=== PATIENT | male | born 1975 | race Caucasian/White ===

== ENCOUNTER 2024-11-26 08:18 | Outpatient (AMB) | payer MEDICAID, SELFPAY ==
--- OUTSIDE RECORDS SUMMARY | 2024-11-26 08:23 | XMS_ITS | Clinical Summary ---
Author Organization [address] Address [address] [place] [phone] Phone Care Team Providers Care Mannequin Decorator Name Role Phone Sergey aKur DO Primary Care Provider [phone] Allergies No known active allergies Medications traMADoL (Ultram) 50 mg tablet Take by mouth. Sig - Route: one tablet up to twice daily - Oral Active valACYclovir (VALTREX) 500 mg tablet Sig - Route: One pill by mouth daily - Oral Active ibuprofen (ADVIL,MOTRIN) 200 mg tablet Si-8 daily Active Active Problems Problem Noted Date Diagnosed Date SOB (shortness of breath) 11/20/2024 Diastolic dysfunction 11/20/2024 Herpes simplex 09/26/2024 Chronic back pain 09/26/2024 Known medical problems 09/26/2024 Overview (09/26/2024): Other symptoms referable to back Immunizations Name Administration Dates Next Due Tdap Tetanus diptheria acell ular pertussis (Boostrix; Adacel) 7yo and older 05/25/2008 Medical History Medical History Date Comments Lower leg edema Social History Tobacco Use Types Packs/Day Years Used Date Smoking Tobacco: Never Assessed Sex and Gender Information Value Date Recorded Sex Assigned at Not on file Legal Sex Male 8:02 AM EST Gender Identity Not on file Sexual Orientation Not on file Obstetrics History Last Filed Vital Signs Vital Sign Reading Time Taken Comments Blood Pressure 132/86 01/29/2024 7:01 AM EDT Pulse - - Temperature - - Respiratory Rate - - Oxygen Saturation - - Inhaled Oxygen Concentration - - Weight 133 kg (293 lb) 01/29/2024 7:01 AM EDT Height 185.4 cm (6' 1 ) 01/29/2024 7:01 AM EDT Body Mass Index 38.66 01/29/2024 7:01 AM EDT Plan of Treatment Upcoming Encounters Date Type Department Care Team (Hetal st Contact Info) Description 11/27/2024 8:50 AM EST Office Visit [facility] [address] [place] [address] Chaparro Baldwin MD [address] [place] [address] [address] [place] [address] Health Maintenance Due Date Last Done Comments Hepatitis B Vaccines (1 of 3 - 19+ 3-dose series) 02/03/1992 DTaP,Tdap,and Td Vaccines (2 - Td or Tdap) 05/25/2018 05/25/2008 Pneumococcal Vaccine: 50+ Years (1 of 1 - PCV) 2023 Zoster Vaccines (1 of 2) 2023 Colorectal Cancer Screening: Colonoscopy 05/06/2024 Depression Screening 05/06/2024 HIV Screening 05/06/2024 Hepatitis C Screening 05/06/2024 Social Influencers of Health Screening 05/06/2024 COVID-19 Vaccine ( - 2023-2 5 season) 2024 Influenza Vaccine (#1) 2024 Hypertension/CHF/CAD Annual BMP Blood Test 11/11/2025 11/11/2024, 02/05/2009 Cholesterol Screening (Lipid Panel) 11/11/2029 11/11/2024, 02/05/2009 HIB Vaccines Aged Out No longer eligi ble based on patient's age to complete this topic HPV Vaccines Aged Out No longer eligi ble based on patient's age to complete this topic Hepatitis A Vaccines Aged Out No long er eligible based on patient's age to complete this topic IPV Vaccines Aged Out No longer eligi ble based on patient's age to complete this topic MMR Vaccines Aged Out No longer eligi ble based on patient's age to complete this topic Meningococcal ACWY Vaccine Aged Out N o longer eligible based on patient's age to complete this topic Meningococcal B Vacine Aged Out No lo nger eligible based on patient's age to complete this topic Pneumococcal Vaccine: Pediatrics (0 to 5 Years) and At-Risk Patients (6 to 64 Years) Aged Out No longer eligible b ased on patient's age to complete this topic RSV Immunization Patients Under 20 months Aged Out No longer eligible b ased on patient's age to complete this topic Varicella Vaccines Aged Out No longer eligible based on patient's age to complete this topic Procedures Procedure Name Priority Date/Time Associated Diagnosis Comments HEMOGLOBIN A1C Routine 11/11/2024 9:24 AM EST HTN (hypertension) IGT (impaired glucose tolerance) BMI 38.0-38.9,adult HLD (hyperlipidemia) BASIC METABOLIC PANEL Routine 11/11/2024 9:24 AM EST HTN (hypertension) IGT (impaired glucose tolerance) BMI 38.0-38.9,adult HLD (hyperlipidemia) ASPARTATE AMINOTRANSFERASE Routine 11/11/2024 9:24 AM EST HTN (hypertension) IGT (impaired glucose tolerance) BMI 38.0-38.9,adult HLD (hyperlipidemia) ALANINE AMINOTRANSFERASE Routine 025 9:24 AM EST HTN (hypertension) IGT (impaired glucose tolerance) BMI 38.0-38.9,adult HLD (hyperlipidemia) LIPID PANEL WITH REFLEX TO DIRECT LDL Routine 11/11/2024 9:24 AM EST HTN (hypertension) IGT (impaired glucose tolerance) BMI 38.0-38.9,adult HLD (hyperlipidemia) from Last 3 Months Results * Lipid panel with reflex to direct LDL (11/11/2024 9:24 AM EST) Cholesterol 148 0 - 200 mg/dL LAB CHEMISTRY METHOD 11/11/2024 11:32 AM EST [facility] Triglycerides 61 0 - 150 mg/dL LAB CHEMISTRY METHOD 11/11/2024 11:32 AM EST [facility] HDL 48 >=40 mg/dL LAB CHEMISTRY METHOD 11/11/2024 11:32 AM EST [facility] LDL Calculated 88 0 - 100 mg/dL LAB CHEMISTRY METHOD 11/11/2024 11:32 AM [facility] VLDL Cholesterol Ryder 12.2 mg/dL LAB CHEMISTRY METHOD 11/11/2024 11:32 AM [facility] Non HDL Chol. (LDL+VLDL) 100 <145 mg/dL LAB CHEMISTRY METHOD 11/11/2024 11:32 AM [facility] Chol/HDL Ratio 3.1 0.0 - 4.4 LAB CHEMISTRY METHOD 11/11/2024 11:32 AM [facility] Blood Venous blood specimen / Unknown Venipuncture / Unknown 11/11/2024 9:24 AM EST 11/11/2024 9:24 AM EST [facility] LAB BLOOD ORDERABLES Final Resul t Performing Organization Address [facility]/ZIP Co de Phone Number [facility] [address] [place] [address], [place] [phone] * Alanine aminotransferase (11/11/2024 9:24 AM EST) ALT (SGPT) 20 10 - 60 unit/L LAB CHEMISTRY METHOD 11/11/2024 11:30 AM [facility] Blood Venous blood specimen / Unknown Venipuncture / Unknown 11/11/2024 9:24 AM EST 11/11/2024 9:24 AM EST [facility] LAB BLOOD ORDERABLES Final Resul t Performing Organization Address City/[facility]/ZIP Co de Phone Number [facility] [address] [place] [address], [place] [phone] * Aspartate aminotransferase (11/11/2024 9:24 AM EST) AST (SGOT) 14 10 - 42 unit/L LAB CHEMISTRY METHOD 11/11/2024 11:30 AM [facility] Blood Venous blood specimen / Unknown Venipuncture / Unknown 11/11/2024 9:24 AM EST 11/11/2024 9:24 AM EST [facility] Saleemcarlos LAB BLOOD ORDERABLES Final Resul t Performing Organization Address [facility]/ZIP Co de Phone Number [facility] [address] [place] [address], [place] [phone] * Hemoglobin A1c (11/11/2024 9:24 AM EST) Pathologist [facility] Hemoglobin A1C 6.0 <6.5 % LAB CHEMISTRY METHOD 11/11/2024 2:07 PM EST [facility] Mean Bld Glu Estim. 126 mg/dL LAB CHEMISTRY METHOD 11/11/2024 2:07 PM [facility] Blood Venous blood specimen / Unknown Venipuncture / Unknown 11/11/2024 9:24 AM EST 11/11/2024 9:24 AM EST [facility] Mike LAB BLOOD ORDERABLES Final Resul t Performing Organization Address City/[facility]/ZIP Co de Phone Number [facility] [address] [place] [address], [place] [phone] * Basic metabolic panel (11/11/2024 9:24 AM EST) Pathologist [facility] Sodium 138 133 - 145 mmol/L LAB CHEMISTRY METHOD 11/11/2024 11:30 AM EST [facility] Potassium 4.3 3.5 - 5.5 mmol/L LAB CHEMISTRY METHOD 11/11/2024 11:30 AM EST [facility] Chloride 105 96 - 110 mmol/L LAB CHEMISTRY METHOD 11/11/2024 11:30 AM EST [facility] CO2 27 21 - 32 mmol/L LAB CHEMISTRY METHOD 11/11/2024 11:30 AM EST [facility] Anion Gap 6 3 - 11 LAB CHEMISTRY METHOD 11/11/2024 11:30 AM EST [facility] Glucose 88 70 - 100 mg/dL LAB CHEMISTRY METHOD 11/11/2024 11:30 AM [facility] BUN 19 5 - 25 mg/dL LAB CHEMISTRY METHOD 11/11/2024 11:30 AM [facility] Creatinine 0.87 0.70 - 1.30 mg/dL LAB CHEMISTRY METHOD 11/11/2024 11:30 AM [facility] eGFR 104 >=60 mL/min/1. 73m2 LAB CHEMISTRY METHOD 11/11/2024 11:30 AM [facility] Comment:Calculation based on the??Chronic Kidney Disease Epidemiology Collaboration (CKD-EPI) equation refit??without adjustment for race. BUN/Creatinine Ratio 21.8 LAB CHEMISTRY METHOD 11/11/2024 11:30 AM [facility] Calcium 9.3 8.5 - 10.5 mg/dL LAB CHEMISTRY METHOD 11/11/2024 11:30 AM [facility] Blood Venous blood specimen / Unknown Venipuncture / Unknown 11/11/2024 9:24 AM EST 11/11/2024 9:24 AM EST [facility] Mckeon LAB BLOOD ORDERABLES Final Resul t [facility] [address] [place] [address], from Last 3 Months Insurance MEDICAID - [place] Care Teams Mannequin Decorator Relationship Specialty Start Date End Date Sergey Kaur DO [address] [place] [phone] PCP - General Internal Medicine 09/30/24
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
[2024-11-26 08:26] VITALS: BP 140/106; PULSE 89; O2SAT 95; BMI 37.2
== END 2024-11-26 09:05 | disposition home or self-care (01) ==
PROVIDERS: PCP Internal Medicine; Visit Provider Internal Medicine Rheumatology
DX: M47.812 Spondylosis without myelopathy or radiculopathy, cervical region (principal); M17.0 Bilateral primary osteoarthritis of knee; E66.9 Obesity, unspecified; Z79.1 Long term (current) use of non-steroidal anti-inflammatories (NSAID)
CPT/HCPCS: 99214

== ENCOUNTER → 2024-11-26 08:18 | Outpatient (BNVA) | payer MEDICAID, SELFPAY | PROVIDERS: PCP Internal Medicine; Visit Provider Internal Medicine Rheumatology | DX: M47.812 Spondylosis without myelopathy or radiculopathy, cervical region (principal); M17.0 Bilateral primary osteoarthritis of knee; E66.9 Obesity, unspecified; Z79.01 Long term (current) use of anticoagulants; Z68.37 Body mass index [BMI] 37.0-37.9, adult | CPT/HCPCS: 99212 ==

== ENCOUNTER 2025-01-12 08:29 | Outpatient (AMB) | payer MEDICAID, SELFPAY ==
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
[2025-01-12 08:36] VITALS: BP 173/96; PULSE 85; RESP 16; O2SAT 97; BMI 35.0
--- OUTSIDE RECORDS SUMMARY | 2025-01-12 09:01 | XMS_ITS | Clinical Summary ---
Author Organization [facility] Address [address] [place] [address] Phone Care Team Providers Care Treatment Specialist Name Role Phone Sergey Kaur DO Primary Care Provider [phone] Allergies No known active allergies Medications traMADoL [...] Overview (09/26/2024): Other symptoms referable to back Encounters Date Type Department Care Team Description 12/05/2024 Telephone [facility] [address] [place] [address] Chaparro Baldwin MD No Call No Show from Last 3 Months Immunizations Name Administration Dates Next Due Tdap [...] Upcoming Encounters Date Type Department Care Team (Late st Contact Info) Description 03/06/2025 8:20 AM EDT Office Visit [facility] Cardiology [address] [place] [id number] Chaparro Baldwin MD [address] [place] [address] [address] [place], [place] [id number] Health Maintenance Due Date Last Done Comments [...] Influencers of Health Screening 05/06/2024 COVID-19 Vaccine (1 - 2023-2 5 season) 2024 Influenza Vaccine [...] LAB CHEMISTRY METHOD 11/11/2024 11:[address] [facility] Triglycerides 61 0 - 150 mg/dL LAB CHEMISTRY METHOD 11/11/2024 11:32 AM [facility] HDL 48 >=40 mg/dL LAB CHEMISTRY METHOD 11/11/2024 11:32 AM [facility] LDL Calculated 88 0 - 100 mg/dL LAB CHEMISTRY METHOD 11/11/2024 11:32 AM [facility] VLDL Cholesterol Ryder 12.2 mg/dL LAB CHEMISTRY METHOD 11/11/2024 11:32 AM [facility] Non HDL Chol. (LDL+VLDL) 100 <145 mg/dL LAB CHEMISTRY METHOD 11/11/2024 11:32 AM [facility] Chol/HDL Ratio 3.1 0.0 - 4.4 LAB CHEMISTRY METHOD 11/11/2024 11:32 AM [facility] Blood Venous blood specimen / Unknown Venipuncture / Unknown 11/11/2024 9:24 AM EST 11/11/2024 9:24 AM EST Christiano Mckeon LAB BLOOD ORDERABLES Final Resul t [facility] [address] [place] [address], [place] [phone] * Alanine aminotransferase (11/11/2024 9:24 AM EST) ALT (SGPT) 20 10 - 60 unit/L LAB CHEMISTRY METHOD 11/11/2024 11:30 AM [facility] Blood Venous blood specimen / Unknown Venipuncture / Unknown 11/11/2024 9:24 AM EST 11/11/2024 9:24 AM EST Christiano Mckeon LAB BLOOD ORDERABLES Final Resul t [facility] [address] [place] [address], [place] [phone] * Aspartate aminotransferase (11/11/2024 9:24 AM EST) Pathologist [facility] AST (SGOT) 14 10 - 42 unit/L LAB CHEMISTRY METHOD 11/11/2024 11:[address] [facility] Blood Venous blood specimen / Unknown Venipuncture / Unknown 11/11/2024 9:24 AM EST 11/11/2024 9:24 AM EST Christiano Jackson LAB BLOOD ORDERABLES Final Resul t Performing Organization Address [facility]/ZIP Co de Phone Number [facility] [address] [place] [address], [place] [phone] * Hemoglobin A1c (11/11/2024 9:24 AM EST) [facility] Hemoglobin A1C 6.0 <6.5 % LAB CHEMISTRY METHOD 11/11/2024 2:[address] [facility] Mean Bld Glu Estim. 126 mg/dL LAB CHEMISTRY METHOD 11/11/2024 2:07 PM [facility] Blood Venous blood specimen / Unknown Venipuncture / Unknown 11/11/2024 9:24 AM EST 11/11/2024 9:24 AM EST Christiano Mckeon LAB BLOOD ORDERABLES Final Resul t Performing Organization Address [facility]/ZIP Co de Phone Number [facility] [address] [place] [address], [place] [phone] * Basic metabolic panel (11/11/2024 9:24 AM EST) [facility] Sodium 138 133 - 145 mmol/L LAB CHEMISTRY METHOD 11/11/2024 11:[address] [facility] Potassium 4.3 3.5 - 5.5 mmol/L LAB CHEMISTRY METHOD 11/11/2024 11:[address] [facility] Chloride 105 96 - 110 mmol/L LAB CHEMISTRY METHOD 11/11/2024 11:[address] [facility] CO2 27 21 - 32 mmol/L LAB CHEMISTRY METHOD 11/11/2024 11:30 AM [facility] Anion Gap 6 3 - 11 LAB CHEMISTRY METHOD 11/11/2024 11:30 AM [facility] Glucose 88 70 - 100 mg/dL LAB CHEMISTRY METHOD 11/11/2024 11:30 AM [facility] BUN 19 5 - 25 mg/dL LAB CHEMISTRY METHOD 11/11/2024 11:30 AM [facility] Creatinine 0.87 0.70 - 1.30 mg/dL LAB CHEMISTRY METHOD 11/11/2024 11:30 AM [facility] eGFR 104 >=60 mL/min/1. 73m2 LAB CHEMISTRY METHOD 11/11/2024 11:30 AM [facility] Comment:Calculation based on the??Chronic Kidney Disease Epidemiology Collaboration (CKD-EPI) equation refit??without adjustment for race. BUN/Creatinine Ratio 21.8 LAB CHEMISTRY METHOD 11/11/2024 11:30 AM [facility] Calcium 9.3 8.5 - 10.5 mg/dL LAB CHEMISTRY METHOD 11/11/2024 11:30 AM [facility] Blood Venous blood specimen / Unknown Venipuncture / Unknown 11/11/2024 9:24 AM EST 11/11/2024 9:24 AM EST us Christiano Mckeon LAB BLOOD ORDERABLES Final Resul t [facility] [address] [place] [address], from Last 3 Months Insurance MEDICAID - [place] Care Teams Treatment Specialist Relationship Specialty Start Date End Date Sergey Kaur DO [address] [place] [phone] PCP - General Internal Medicine 09/30/24
== END 2025-01-12 09:01 | disposition home or self-care (01) ==
PROVIDERS: PCP Internal Medicine; Referring Provider Internal Medicine Rheumatology; Visit Provider Anesthesiology
DX: M47.812 Spondylosis without myelopathy or radiculopathy, cervical region (principal); M54.2 Cervicalgia; M79.2 Neuralgia and neuritis, unspecified; G89.4 Chronic pain syndrome; M54.9 Dorsalgia, unspecified; M19.90 Unspecified osteoarthritis, unspecified site
CPT/HCPCS: 99204

== ENCOUNTER → 2025-01-12 08:29 | Outpatient (BNVA) | payer MEDICAID, SELFPAY | PROVIDERS: PCP Internal Medicine; Referring Provider Internal Medicine Rheumatology; Visit Provider Anesthesiology | DX: M47.812 Spondylosis without myelopathy or radiculopathy, cervical region (principal); M54.2 Cervicalgia; M79.2 Neuralgia and neuritis, unspecified; G89.4 Chronic pain syndrome; M19.90 Unspecified osteoarthritis, unspecified site | CPT/HCPCS: 99202 ==

== ENCOUNTER 2025-03-03 06:25 | Outpatient (REF) | payer MEDICAID, SELFPAY ==
--- NOTE | ~2025-03-03 | FL_ITS ---
EXAMINATION: FL GUIDANCE ONLY HISTORY: M47.812 - Spondylosis without myelopathy or radiculopathy, cervical region COMPARISON: None available. TECHNIQUE: Fluoroscopy time: 0.3 minutes. Cumulative Dose: 2.55 mGy. DAP: 0.0357 mGym2 Images: 1. FINDINGS: A single fluoroscopic spot film of the cervical spine in the AP projection demonstrates a lead in the right neck. FL/FL guidance in treatment room IMPRESSION: Fluoroscopy during procedure. Please see procedure report for additional information. Electronically signed by: Long Sanchez MD 03/03/2025 11:59 AM EDT
--- OUTSIDE RECORDS SUMMARY | 2025-03-03 06:28 | XMS_ITS | Clinical Summary ---
Author Organization [facility] Address [address] [place] [address] Phone Care Team Providers Care Vp Software Support Name Role Phone Sergey Kaur DO Primary Care Provider [phone] Allergies No known active allergies Medications traMADoL [...] Type Department Care Team Description 12/05/2024 Telephone [facility] [address] [place] [address] Chaparro Baldwin MD No Call [...] Description 03/06/2025 8:20 AM EDT Office Visit [facility] Cardiology [address] [place] [phone] Chaparro Baldwin MD [address] [place] [address] [address] [place] [address] Health Maintenance Due Date Last Done Comments [...] - 2023-2 5 season) 2024 Influenza Vaccine (Season Ended) 2025 Hypertension/CHF/CAD Annual BMP Blood Test 11/11/2025 11/11/2024, [...] age to complete this topic Meningococcal B Vaccine Aged Out No l onger eligible based on patient's age to complete [...] Procedure Name Priority Date/Time Associated Diagnosis Comments BASIC METABOLIC PANEL Routine 11/11/2024 9:24 AM EST HTN (hypertension) IGT (impaired glucose tolerance) BMI 38.0-38.9,adult HLD (hyperlipidemia) LIPID PANEL WITH REFLEX TO DIRECT LDL Routine 11/11/2024 9:24 AM EST HTN (hypertension) IGT (impaired glucose tolerance) BMI 38.0-38.9,adult HLD (hyperlipidemia) from Last 3 Months or Most Recently Relevant to Health Maintenance Results * Lipid panel with reflex to direct LDL (11/11/2024 9:24 AM EST) Cholesterol 148 0 - 200 mg/dL LAB CHEMISTRY METHOD 11/11/2024 11:32 AM [facility] Triglycerides 61 0 - 150 mg/dL LAB CHEMISTRY METHOD 11/11/2024 11:32 AM [facility] HDL 48 >=40 mg/dL LAB CHEMISTRY METHOD 11/11/2024 11:32 AM [facility] LDL Calculated 88 0 - 100 mg/dL LAB CHEMISTRY METHOD 11/11/2024 11:32 AM [facility] VLDL Cholesterol Ryder 12.2 mg/dL LAB CHEMISTRY METHOD 11/11/2024 11:32 AM [facility] Non HDL Chol. (LDL+VLDL) 100 <145 mg/dL LAB CHEMISTRY METHOD 11/11/2024 11:32 AM [facility] Chol/HDL Ratio 3.1 0.0 - 4.4 LAB CHEMISTRY METHOD 11/11/2024 11:32 AM [facility] Blood Venous blood specimen / Unknown Venipuncture / Unknown 11/11/2024 9:24 AM EST 11/11/2024 9:24 AM EST us Christiano Mckeon LAB BLOOD ORDERABLES Final Resul t [facility] [address] [place] [address], [place] [phone] * Basic metabolic panel (11/11/2024 9:24 AM EST) Sodium 138 133 - 145 mmol/L LAB CHEMISTRY METHOD 11/11/2024 11:30 AM [facility] Potassium 4.3 3.5 - 5.5 mmol/L LAB CHEMISTRY METHOD 11/11/2024 11:30 AM [facility] Chloride 105 96 - 110 mmol/L LAB CHEMISTRY METHOD 11/11/2024 11:30 AM [facility] CO2 27 21 - 32 mmol/L LAB CHEMISTRY METHOD 11/11/2024 11:30 AM [facility] Anion Gap 6 3 - 11 LAB CHEMISTRY METHOD 11/11/2024 11:30 AM [facility] Glucose 88 70 - 100 mg/dL LAB CHEMISTRY METHOD 11/11/2024 11:30 AM [facility] BUN 19 5 - 25 mg/dL LAB CHEMISTRY METHOD 11/11/2024 11:30 AM [facility] Creatinine 0.87 0.70 - 1.30 mg/dL LAB CHEMISTRY METHOD 11/11/2024 11:30 AM [facility] eGFR 104 >=60 mL/min/1. 73m2 LAB CHEMISTRY METHOD 11/11/2024 11:30 AM EST [facility] Comment:Calculation based on the??Chronic Kidney Disease Epidemiology Collaboration (CKD-EPI) equation refit??without adjustment for race. BUN/Creatinine Ratio 21.8 LAB CHEMISTRY METHOD 11/11/2024 11:30 AM EST [facility] Calcium 9.3 8.5 - 10.5 mg/dL LAB CHEMISTRY METHOD 11/11/2024 11:30 AM EST [facility] Blood Venous blood specimen / Unknown Venipuncture / Unknown 11/11/2024 9:24 AM EST 11/11/2024 9:24 AM EST us Christiano Mckeon LAB BLOOD ORDERABLES Final Resul t [facility] [address] [place] [address], from Last 3 Months or Most Recently Relevant to Health Maintenance Insurance MEDICAID - [place] Care Teams Vp Software Support Relationship Specialty Start Date End Date Sergey Kaur DO [address] [place] [phone] PCP - General Internal Medicine 09/30/24
== END 2025-03-03 06:26 | disposition home or self-care (01) ==
LOC: CF 06:25
PROVIDERS: Visit Provider Anesthesiology
DX: M47.812 Spondylosis without myelopathy or radiculopathy, cervical region (principal)
CPT/HCPCS: 64555; C1778; J2003

== ENCOUNTER 2025-03-03 08:08 | Outpatient (AMB) | payer MEDICAID, SELFPAY ==
[2025-03-03 08:14] VITALS: BP 143/79; PULSE 91; RESP 18; O2SAT 96
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
[2025-03-03 08:54] VITALS: BP 139/93; PULSE 84; RESP 20; O2SAT 98
== END 2025-03-03 09:10 | disposition home or self-care (01) ==
LOC: HO.PMCPRC 08:08
PROVIDERS: PCP Internal Medicine; Visit Provider Anesthesiology
DX: M54.2 Cervicalgia (principal); M47.812 Spondylosis without myelopathy or radiculopathy, cervical region
CPT/HCPCS: 64555

== ENCOUNTER 2025-03-11 10:51 | Outpatient (AMB) | payer MEDICAID, SELFPAY ==
[2025-03-11 11:02] VITALS: BP 152/95; PULSE 90; RESP 20; O2SAT 97
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
--- OUTSIDE RECORDS SUMMARY | 2025-03-11 11:44 | XMS_ITS | Clinical Summary ---
Author Organization [facility] Address [address] [place] [address] Phone Care Team Providers Care Tax Analyst Name Role Phone ValerianotachodarylSergey murphy Primary Care Provider [phone] Allergies No known active allergies Medications traMADoL [...] 01/29/2024 7:01 AM EDT Plan of Treatment Health Maintenance Due Date Last Done Comments [...] LAB CHEMISTRY METHOD 11/11/2024 11:32 AM EST [facility] Triglycerides 61 0 - 150 mg/dL LAB CHEMISTRY METHOD 11/11/2024 11:32 AM [facility] HDL 48 >=40 mg/dL LAB CHEMISTRY METHOD 11/11/2024 11:32 AM [facility] LDL Calculated 88 0 - 100 mg/dL LAB CHEMISTRY METHOD 11/11/2024 11:32 AM EST [facility] VLDL Cholesterol Ryder 12.2 mg/dL [...] Mckeon LAB BLOOD ORDERABLES Final Resul t [facility] [address] [place] [address], [place] [phone] * Basic metabolic panel (11/11/2024 9:24 AM EST) Sodium 138 133 - 145 mmol/L LAB CHEMISTRY METHOD 11/11/2024 11:30 AM [facility] Potassium 4.3 3.5 - 5.5 mmol/L LAB CHEMISTRY METHOD 11/11/2024 11:30 AM [facility] Chloride 105 96 - 110 mmol/L LAB CHEMISTRY METHOD 11/11/2024 11:30 AM [facility] CO2 27 21 - 32 mmol/L LAB CHEMISTRY METHOD 11/11/2024 11:30 AM [facility] Anion Gap 6 3 - 11 LAB CHEMISTRY METHOD 11/11/2024 11:30 AM [facility] Glucose 88 70 - 100 [...] Mckeon LAB BLOOD ORDERABLES Final Resul t [facility] [address] [place] [address], from Last 3 Months or Most Recently Relevant to Health Maintenance Insurance MEDICAID - [place] Care Teams Tax Analyst Relationship Specialty Start Date End Date Sergey Kaur DO [address] [place] [phone] PCP - General Internal Medicine 09/30/24
== END 2025-03-11 11:28 | disposition home or self-care (01) ==
LOC: HO.PMC 10:51
PROVIDERS: PCP Internal Medicine; Visit Provider Anesthesiology
DX: M47.812 Spondylosis without myelopathy or radiculopathy, cervical region (principal); M54.2 Cervicalgia; M79.2 Neuralgia and neuritis, unspecified; G89.4 Chronic pain syndrome; M54.9 Dorsalgia, unspecified; M19.90 Unspecified osteoarthritis, unspecified site
CPT/HCPCS: 99024

== ENCOUNTER → 2025-03-11 10:51 | Outpatient (BNVA) | payer MEDICAID, SELFPAY | PROVIDERS: PCP Internal Medicine; Visit Provider Anesthesiology | DX: M47.812 Spondylosis without myelopathy or radiculopathy, cervical region (principal); M54.2 Cervicalgia; M79.2 Neuralgia and neuritis, unspecified; M54.9 Dorsalgia, unspecified; M19.90 Unspecified osteoarthritis, unspecified site; G89.4 Chronic pain syndrome | CPT/HCPCS: 99212 ==

== ENCOUNTER 2025-03-17 06:02 | Outpatient (REF) | payer MEDICAID, SELFPAY ==
--- NOTE | ~2025-03-17 | FL_ITS ---
EXAMINATION: FLUOROSCOPY GUIDANCE FOR NEEDLE PLACEMENT CLINICAL INFORMATION: M47.812 - Spondylosis without myelopathy or radiculopathy, cervical region COMPARISON: None available. TECHNIQUE: Fluoroscopy guidance was provided to referring physician during the procedure. No radiologist present. FINDINGS/ FL/FL guidance in treatment room IMPRESSION: A single digital images obtained revealing needle positioned posterior to C4-5 disc level . No other bony abnormality seen. FLUOROSCOPY TIME: 0.1 minutes DOSE AREA PRODUCT: 1.40 uGy-m2 (microgray-meter squared) Electronically signed by: Christian Mosley MD 03/17/2025 08:42 AM EDT
--- OUTSIDE RECORDS SUMMARY | 2025-03-17 06:05 | XMS_ITS | Clinical Summary ---
Author Organization [facility] [address] [employer] [facility] Address [address] [facility] [place] [address] Phone Care Team Providers Care Agronomy Professor Name Role Phone ValerianotachodarylSergey murphy Primary Care Provider [phone] Allergies No known active allergies Medications traMADoL [...] LAB CHEMISTRY METHOD 11/11/2024 11:32 AM EST [facility] Triglycerides 61 0 - 150 mg/dL LAB CHEMISTRY METHOD 11/11/2024 11:32 AM [facility] HDL 48 >=40 mg/dL LAB CHEMISTRY METHOD 11/11/2024 11:32 AM [facility] LDL Calculated 88 0 - 100 mg/dL LAB CHEMISTRY METHOD 11/11/2024 11:32 AM EST [facility] VLDL Cholesterol Ryder 12.2 mg/dL LAB CHEMISTRY METHOD 11/11/2024 11:32 AM [facility] Non HDL Chol. (LDL+VLDL) 100 <145 mg/dL LAB CHEMISTRY METHOD 11/11/2024 11:32 AM [facility] Chol/HDL Ratio 3.1 0.0 - 4.4 LAB CHEMISTRY METHOD 11/11/2024 11:32 AM [facility] Blood Venous blood specimen / Unknown Venipuncture / Unknown 11/11/2024 9:24 AM EST 11/11/2024 9:24 AM EST us Christiano Mckeon LAB BLOOD ORDERABLES Final Resul t [facility] [address] [place] [address], [place] [phone] * Basic metabolic panel (11/11/2024 9:24 AM EST) Sodium 138 133 - 145 mmol/L LAB CHEMISTRY METHOD 11/11/2024 11:30 AM [facility] Potassium 4.3 3.5 - 5.5 mmol/L LAB CHEMISTRY METHOD 11/11/2024 11:30 AM [facility] Chloride 105 96 - 110 mmol/L LAB CHEMISTRY METHOD 11/11/2024 11:30 AM [facility] CO2 27 21 - 32 mmol/L LAB CHEMISTRY METHOD 11/11/2024 11:30 AM [facility] Anion Gap 6 3 - 11 LAB CHEMISTRY METHOD 11/11/2024 11:30 AM [facility] Glucose 88 70 - 100 mg/dL LAB CHEMISTRY METHOD 11/11/2024 11:30 AM [facility] BUN 19 5 - 25 mg/dL LAB CHEMISTRY METHOD 11/11/2024 11:30 AM [facility] Creatinine 0.87 0.70 - 1.30 mg/dL LAB CHEMISTRY METHOD 11/11/2024 11:30 AM [facility] eGFR 104 >=60 mL/min/1. 73m2 LAB CHEMISTRY METHOD 11/11/2024 11:30 AM [facility] Comment:Calculation based on the??Chronic Kidney Disease Epidemiology Collaboration (CKD-EPI) equation refit??without adjustment for race. BUN/Creatinine Ratio 21.8 LAB CHEMISTRY METHOD 11/11/2024 11:30 AM [facility] Calcium 9.3 8.5 - 10.5 mg/dL LAB CHEMISTRY METHOD 11/11/2024 11:30 AM [facility] Blood Venous blood specimen / Unknown Venipuncture / Unknown 11/11/2024 9:24 AM EST 11/11/2024 9:24 AM EST Christiano Mckeon LAB BLOOD ORDERABLES Final Resul t [facility] [address] [place] [address], from Last 3 Months or Most Recently Relevant to Health Maintenance Insurance MEDICAID - [place] Care Teams Agronomy Professor Relationship Specialty Start Date End Date Sergey Kaur DO [address] [place] [phone] PCP - General Internal Medicine 09/30/24
== END 2025-03-17 06:03 | disposition home or self-care (01) ==
LOC: CF 06:02
PROVIDERS: Visit Provider Anesthesiology
DX: M47.812 Spondylosis without myelopathy or radiculopathy, cervical region (principal)
CPT/HCPCS: 64555; J2003

== ENCOUNTER 2025-03-17 07:55 | Outpatient (AMB) | payer MEDICAID, SELFPAY ==
[2025-03-17 08:04] VITALS: BP 145/90; PULSE 76; RESP 16; O2SAT 97
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
[2025-03-17 08:37] VITALS: BP 154/92; PULSE 76; RESP 18; O2SAT 97
== END 2025-03-17 08:47 | disposition home or self-care (01) ==
LOC: HO.PMCPRC 07:55
PROVIDERS: PCP Internal Medicine; Visit Provider Anesthesiology
DX: M47.812 Spondylosis without myelopathy or radiculopathy, cervical region (principal); M54.2 Cervicalgia
CPT/HCPCS: 64555

== ENCOUNTER 2025-03-25 08:54 | Outpatient (AMB) | payer MEDICAID, SELFPAY ==
[2025-03-25 08:56] VITALS: BP 142/94; PULSE 89; RESP 20; O2SAT 95
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
== END 2025-03-25 09:07 | disposition home or self-care (01) ==
LOC: HO.PMC 08:54
PROVIDERS: PCP Internal Medicine; Visit Provider Anesthesiology
DX: M47.812 Spondylosis without myelopathy or radiculopathy, cervical region (principal); M54.2 Cervicalgia; M79.2 Neuralgia and neuritis, unspecified; G89.4 Chronic pain syndrome; M54.9 Dorsalgia, unspecified; M19.90 Unspecified osteoarthritis, unspecified site
CPT/HCPCS: 99024

== ENCOUNTER → 2025-03-25 08:54 | Outpatient (BNVA) | payer MEDICAID, SELFPAY | PROVIDERS: PCP Internal Medicine; Visit Provider Anesthesiology | DX: M47.812 Spondylosis without myelopathy or radiculopathy, cervical region (principal); M54.2 Cervicalgia; M54.9 Dorsalgia, unspecified; G89.4 Chronic pain syndrome; M79.2 Neuralgia and neuritis, unspecified; M19.90 Unspecified osteoarthritis, unspecified site | CPT/HCPCS: 99212 ==

== ENCOUNTER 2025-04-23 08:11 | Outpatient (REF) | payer MEDICAID, SELFPAY ==
[2025-04-23 12:54] LABS: MANUAL DIFF FLAG NO
[2025-04-23 13:18] LABS: Hematocrit 41.2 % (42.0-52.0); Hemoglobin 12.6 g/dl (14.0-18.0); Imm Gran Abs Auto 0.09 X10*3/uL (0.00-0.03); Imm Gran Pct Auto 1.0 % (0.0-0.4); Lymphocytes Absolute Auto 2.0 X10*3/uL (1.2-4.9); Mean Corpuscular HGB Conc 30.6 g/dl (31.0-36.0); Mean Corpuscular Hemoglobin 25.1 pg (27.0-33.0); Mean Corpuscular Volume 82.2 fL (80.0-98.0); NRBC Abs Auto 0.000 X10*3/uL (0.0-0.012); NRBC Pct Auto 0.0 /100WBC (0.0-0.2); Platelet Count 397 X10*3/uL (160-400); Red Blood Count 5.01 X10*6/uL (4.60-5.80); White Blood Count 9.4 X10*3/uL (4.8-10.8)
[2025-04-23 13:31] LABS: Alanine Aminotransferase 37 U/L (0-40); Aspartate Amino Transferase 41 U/L (5-37)
== END 2025-04-23 08:12 | disposition home or self-care (01) ==
LOC: HO.HKASLDS 08:11
PROVIDERS: PCP Internal Medicine; Visit Provider Internal Medicine Rheumatology
DX: M17.0 Bilateral primary osteoarthritis of knee (principal); M47.812 Spondylosis without myelopathy or radiculopathy, cervical region; E66.9 Obesity, unspecified; Z68.38 Body mass index [BMI] 38.0-38.9, adult; Z79.1 Long term (current) use of non-steroidal anti-inflammatories (NSAID)
CPT/HCPCS: 20610; 36415; 84450; 84460; 85025; 86140; 99212; J2003; J3300

== ENCOUNTER 2025-04-23 08:11 | Outpatient (AMB) | payer MEDICAID, SELFPAY ==
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
--- OUTSIDE RECORDS SUMMARY | 2025-04-23 08:15 | XMS_ITS | Encounter Summary ---
Author Organization [facility] Address [address] [place] [address] Care Team Providers Care Manager Lvn Name Role Phone Sergey Kaur DO Primary Care Provider [phone] Encounter Details Date Type Department Care Team (Late st Contact Info) Description 03/25/2025 Telephone Gastroenterology - [place] [address] [facility] [address] [place] [id number] [facility] [place] Social History Tobacco Use Types Packs/Day Years Used Date Smoking Tobacco: Never Assessed Sex and Gender Information Value Date Recorded Sex Assigned at Not on file Legal Sex Male 8:02 AM EST Gender Identity Not on file Sexual Orientation Not on file documented as of this encounter Plan of Treatment Not on file documented as of this encounter Visit Diagnoses Not on filedocumented in this encounter Care Teams Manager Lvn Relationship Specialty Start Date End Date Sergey Kaur DO [address] [place] [id number] PCP - General Internal Medicine 09/30/24 documented as of this encounter
[2025-04-23 08:25] VITALS: BP 158/92; PULSE 97; O2SAT 97; BMI 38.8
== END 2025-04-23 09:01 | disposition home or self-care (01) ==
LOC: HO.RHES 08:12
PROVIDERS: PCP Internal Medicine; Visit Provider Internal Medicine Rheumatology
DX: M47.812 Spondylosis without myelopathy or radiculopathy, cervical region (principal); M17.0 Bilateral primary osteoarthritis of knee; E66.9 Obesity, unspecified; Z79.1 Long term (current) use of non-steroidal anti-inflammatories (NSAID)
CPT/HCPCS: 20610; 99214